=== PATIENT | male | born 1960 | race Caucasian/White ===

== ENCOUNTER 2017-11-01 01:04 | Emergency (ER) | payer OTHER ==
[~2017-11-01] VITALS: Ht 177.8 cm; Wt 99.8 kg
[2017-11-01] MEDS ORDERED: FORTESTA60 GM TOP (01:14)
[2017-11-01] MEDS ORDERED: ZOCOR 10 MG TAB10 MG PO (01:14)
[2017-11-01] MEDS ORDERED: ASPIR 8181 MG PO (01:15)
[2017-11-01 01:41] LABS: ABSOLUTE BASOPHILS 0.1 thou/uL (0.0-0.2); ABSOLUTE EOSINOPHILS 0.1 thou/uL (0.0-0.7); ABSOLUTE LYMPHOCYTES 1.9 thou/uL (0.8-5.3); ABSOLUTE NEUTROPHILS 14.8 thou/uL (1.6-8.1); BASOPHILS 0.3 %; EOSINOPHILS 0.5 %; HEMATOCRIT 48.4 % (42.0-52.0); HEMOGLOBIN 16.6 gm/dL (14.0-18.0); LYMPHOCYTES 10.5 %; MCH 30.8 pg (26.0-34.0); MCHC 34.3 g/dL (28.0-37.0); MCV 89.7 fL (80.0-100.0); MONOCYTES 5.5 %; MPV 8.2 fl. (7.2-11.1); NUCLEATED RBCS 0 /100WBC; PLATELET COUNT* 216 thou/uL (150-400); POLYS 83.2 %; RBC 5.39 mil/uL (4.50-6.00); RDW-CV 13.4 % (10.5-14.5); WBC 17.8 thou/uL (4.0-11.0)
[2017-11-01 01:53] LABS: ANION GAP 11 mmol/L (7-16); BUN 19 mg/dL (7-18); CALCIUM 8.9 mg/dL (8.5-10.1); CHLORIDE 105 mmol/L (98-107); CO2 24 mmol/L (21-32); CREATININE 1.1 mg/dL (0.6-1.3); GLUCOSE 140 mg/dL (70-99); SODIUM 140 mmol/L (136-145)
[2017-11-01 02:00] LABS: ALBUMIN 3.9 g/dL (3.4-5.0); ALKALINE PHOSPHATASE 71 U/L (46-116); LIPASE 136 U/L (73-393); SGOT 28 U/L (15-37); SGPT 40 U/L (30-65); TOTAL BILIRUBIN 0.5 mg/dL (<0.1-1.0); TOTAL PROTEIN 7.3 g/dL (6.4-8.2); TROPONIN-I LEVEL <0.06 ng/mL (<0.06)
[2017-11-01 02:27] LABS: URINE BILIRUBIN NEGATIVE (Negative); URINE BLOOD TRACE (Negative); URINE CLARITY CLEAR; URINE COLOR YELLOW; URINE GLUCOSE-RANDOM NEGATIVE (Negative); URINE KETONES TRACE (Negative); URINE LEUKOCYTES-REFLEX NEGATIVE (Negative); URINE NITRITE-REFLEX NEGATIVE (Negative); URINE PROTEIN NEGATIVE (Negative); URINE SPECIFIC GRAVITY 1.015 (1.005-1.030); URINE UROBILINOGEN 0.2 E.U./dl (0.2-1.0)
[2017-11-01] MEDS ORDERED: ZOFRAN ODT4 MG SUBLING (02:54)
[2017-11-01 03:01] VITALS: BP 142/80
--- NOTE | 2017-11-01 10:27 | EKG ---
[place] [id number] ELECTROCARDIOGRAM REPORT Name: LISA HERBERT [id number] Admission: 11/01/17 Attend Phys: Discharge: 11/01/17 Date of : 56 Report #: [id number] THIS REPORT FOR: //name// [facility] ED Test Date: 2017-11-01 Test Time: 01:34:28 Pat Name: LISA HERBERT Department: Room: Gender: Allocations Clerk: PRAKASH Sidhu : 1960 Requested By: Felipe Moreno Order Number: [id number] MD: Chriss Prasad Measurements Intervals [place] Rate: 74 P: 15 VT: 166 QRS: -12 QRSD: 93 T: -17 QT: 387 QTc: 430 Interpretive Statements Sinus rhythm Left ventricular hypertrophy possible Anterior infarct, old possible Borderline T abnormalities, inferior leads No previous ECG available for comparison Electronically Signed On 11-01-2017 10:26:47 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
== END 2017-11-01 03:02 | disposition home or self-care (01) ==
LOC: M.ERS 01:04
PROVIDERS: Family Medicine
DX: R11.2 Nausea with vomiting, unspecified (principal); R10.9 Unspecified abdominal pain; Z88.8 Allergy status to other drugs, medicaments and biological substances; Z87.19 Personal history of other diseases of the digestive system